=== PATIENT | female | born 1960 | race Caucasian/White ===

== ENCOUNTER 2025-01-02 10:05 | Day surgery (SDC) | payer MEDICARE ==
[~2025-01-02] VITALS: Ht 162.6 cm; Wt 80.2 kg
[~2025-01-02 10:05] MED LIST: ATOR1TAB19 PO; HYDR12.510 PO; LEVO88TA24 PO; LIDOCAINE 3.5% 1 ML OPHTH TOPICAL GEL OU ONE; LIFI1DRO4; XALA0.007
[2025-01-02] MEDS ORDERED: MIDAZOLAM INJ 2 MG/2 ML VIAL As Ordered ONE (10:38)
[2025-01-02] MEDS: POVIDONE-IODINE 5% OPHTH PREP SOL 30ML As Ordered ONE (15:28)
[2025-01-02] MEDS: LIDOCAINE 2% W/EPINEPHrine 20 ML VIAL **PRES FREE As Ordered ONE (15:46)
[2025-01-02] MEDS: CIPROFLOXACIN 0.3% OPHTH OINTMENT As Ordered ONE (15:46)
[2025-01-02 15:58] VITALS: BP 126/63; TEMP 97; O2SAT 99
== END 2025-01-02 16:17 | disposition home or self-care (01) ==
LOC: M SDC 10:05
PROVIDERS: ATTEND Ophthalmology
DX: H11.003 Unspecified pterygium of eye, bilateral (principal); E03.9 Hypothyroidism, unspecified; E78.00 Pure hypercholesterolemia, unspecified; Z79.899 Other long term (current) drug therapy; Z79.890 Hormone replacement therapy; Z88.2 Allergy status to sulfonamides; Z92.3 Personal history of irradiation; Z85.42 Personal history of malignant neoplasm of other parts of uterus; Z90.710 Acquired absence of both cervix and uterus
CPT/HCPCS: 65426; 88300; J2250; J3010